=== PATIENT | female | born 1960 | race Caucasian/White ===

== ENCOUNTER 2023-10-24 05:21 | Emergency (ER) | payer BC ==
[2023-10-24] MEDS: Morphine 4 MG/ML VIAL IVPUSH ONE (05:55)
[2023-10-24] MEDS: Ondansetron 4 MG/2 ML SDV IVPUSH ONE ×2 (05:56→07:59)
[2023-10-24 06:04] LABS: BILIRUBIN,URINE NEGATIVE (NEGATIVE); GLUCOSE,URINE 100 mg/dL (NORMAL); KETONES,URINE NEGATIVE (NEGATIVE); LEUKOCYTE ESTERASE,URINE LARGE (NEGATIVE); NITRITE,URINE NEGATIVE (NEGATIVE); OCCULT BLOOD,URINE LARGE (NEGATIVE); PROTEIN,URINE 100 mg/dL (NEGATIVE); UROBILINOGEN,URINE NORMAL (NEGATIVE)
[2023-10-24] MEDS: Sodium Chloride 0.9% 10 ML Syringe FLUSH PRN (06:05)
[2023-10-24 06:08] LABS: APPEARANCE,URINE CLEAR (CLEAR); BACTERIA,URINE FEW (NS); COLOR,URINE YELLOW (YELLOW); SQUAMOUS EPITHELIAL CELLS,UR OCCASIONAL (NS,R,O); YEAST,URINE FEW (NS)
[2023-10-24 06:15] LABS: BASOPHILS ABSOLUTE AUTO 0.1 x10-3/uL (0.0-0.1); BASOPHILS PERCENT AUTO 0.7 % (0.2-1.5); EOSINOPHILS ABSOLUTE AUTO 0.1 x10-3/uL (0.0-0.8); HEMATOCRIT 42.9 % (34.2-48.2); HEMOGLOBIN 14.3 g/dL (11.4-15.5); LYMPHOCYTES ABSOLUTE AUTO 1.9 x10-3/uL (1.0-4.4); LYMPHOCYTES PERCENT AUTO 18.6 % (18.4-52.1); MEAN CORPUSCULAR HEMOGLOBIN 30.3 pg (23.9-33.9); MEAN CORPUSCULAR HGB CONC 33.4 g/dL (31.9-34.8); MEAN CORPUSCULAR VOLUME 90.7 fL (76.7-100.5); MEAN PLATELET VOLUME 7.9 fL (7.1-12.4); MONOCYTES ABSOLUTE AUTO 0.4 x10-3/uL (0.3-1.0); MONOCYTES PERCENT AUTO 4.2 % (4.4-15.7); NEUTROPHILS ABSOLUTE AUTO 7.6 x10-3/uL (1.5-6.3); NEUTROPHILS PERCENT AUTO 75.5 % (30.8-76.2); PLATELET COUNT,PLT 244 x10(3)uL (151-488); RED BLOOD CELL COUNT 4.74 x10(6)uL (3.60-5.20); RED CELL DISTRIBUTION WIDTH 13.6 % (12.3-16.5)
[2023-10-24 06:18] LABS: BLOOD UREA NITROGEN,BUN 15 mg/dL (7-18); BUN/CREATININE RATIO 21.4 (9-20); CALCIUM 8.8 mg/dL (8.6-10.2); CARBON DIOXIDE,CO2 27 mmol/L (21-32); CHLORIDE,CL 105 mmol/L (100-110); CREATININE 0.7 mg/dL (0.55-1.02); ESTIMATED GFR 98 mL/min (>60); GLUCOSE RANDOM 229 mg/dL (80-116); POTASSIUM,K 3.7 mmol/L (3.5-5.3); SODIUM,NA 143 mmol/L (135-145)
[2023-10-24] MEDS: Ketorolac 30 MG/ML SDV IVPUSH ONE (06:45)
[2023-10-24] MEDS: Sodium Chloride 0.9% 1,000 ML IV ONE ×2 (06:46→07:49)
[2023-10-24] MEDS: Tamsulosin 0.4 MG Cap.ER PO ONE (07:48)
[2023-10-24] MEDS: Sulfamethoxazole/Trimethoprim 800-160 MG Tab PO ONE (07:49)
[2023-10-24] MEDS: Acetaminophen/oxyCODONE 325-5 MG Tab PO STA (08:04)
[2023-10-24 11:10] VITALS: BP 142/69; PULSE 82
== END 2023-10-24 11:21 | disposition home or self-care (01) ==
LOC: FB.ED 05:21
DX: N20.0 Calculus of kidney (principal); N39.0 Urinary tract infection, site not specified; Z88.1 Allergy status to other antibiotic agents; Z79.899 Other long term (current) drug therapy; Z86.19 Personal history of other infectious and parasitic diseases; Z90.49 Acquired absence of other specified parts of digestive tract
CPT/HCPCS: 74176; 80048; 81001; 85025; 87086; 87088; 87186; 96361; 96374; 96375; 96376; 99284; A9270; J1885; J2270; J2405; J3490; J7030

== ENCOUNTER 2025-01-16 07:18 | Emergency (ER) | payer OTHER, BC ==
[2025-01-16] MEDS ORDERED: Lidocaine 1% 20 ML MDV INFILT ONE (07:19)
[2025-01-16 07:42] VITALS: BP 129/87; PULSE 71
== END 2025-01-16 08:05 | disposition home or self-care (01) ==
LOC: FB.ED 07:18
DX: S61.210A Laceration without foreign body of right index finger without damage to nail, initial encounter (principal); Z88.8 Allergy status to other drugs, medicaments and biological substances; Z79.51 Long term (current) use of inhaled steroids; Z79.899 Other long term (current) drug therapy; Z90.49 Acquired absence of other specified parts of digestive tract; W26.8XXA Contact with other sharp object(s), not elsewhere classified, initial encounter; Y93.89 Activity, other specified
CPT/HCPCS: 12001; 99282; 99283